=== PATIENT | female | born 1995 | race Caucasian/White ===

== ENCOUNTER 2017-02-07 19:05 | Emergency (ER) | payer OTHER ==
[2017-02-07 20:04] VITALS: BP 120/68
--- NOTE | 2017-02-07 21:19 | UC ---
Throat Pain/Nasal Tod HPI - HPI Summary HPI Summary: THREE DAYS OF SORE THROAT. CONCERN FOR STREP. NO FEVER. NO RASHES. NO ABDOMINAL PAIN. HAS FELT VERY TIRED. - History of Current Complaint Chief Complaint: UCGeneralIllness Stated Complaint: THROAT Time Seen by Provider: 02/07/17 20:55 Hx Obtained From: Patient Onset/Duration: Gradual Onset, Lasting Days, Still Present Severity: Moderate Cough: None Associated Signs & Symptoms: Positive: Dysphagia, Hoarseness - Epiglottits Risk Factors Epiglottis Risk Factors: Negative - Allergies/Home Medications Allergies/Adverse Reactions: Allergies Allergy/AdvReac Type Severity Reaction Status Date / Time No Known Allergies Allergy Verified 02/07/17 20:04 Home Medications: Home Medications NK [No Home Medications Reported] 02/07/17 [History Confirmed 02/07/17] PMH/Surg Hx/FS Hx/Imm Hx Previously Healthy: Yes - Surgical History Surgical History: None - Family History Known Family History: Negative: Blood Disorder - Social History Occupation: Employed Full-time Lives: With Family Alcohol Use: Occasionally Substance Use Type: None Smoking Status (MU): Never Smoked Tobacco Review of Systems Constitutional: Negative Skin: Negative Eyes: Negative ENT: Sore Throat Respiratory: Negative Cardiovascular: Negative Gastrointestinal: Negative Genitourinary: Negative Motor: Negative Neurovascular: Negative Musculoskeletal: Negative Neurological: Negative Psychological: Negative Is Patient Immunocompromised?: No All Other Systems Reviewed And Are Negative: Yes Physical Exam Triage Information Reviewed: Yes Appearance: Well-Appearing, No Pain Distress, Well-Nourished Vital Signs: Initial Vital Signs Temp 98.1 F 02/07/17 20:01 Pulse 80 02/07/17 20:01 Resp 16 02/07/17 20:01 BP 120/68 02/07/17 20:01 Pulse Ox 98 02/07/17 20:01 Vital Signs Reviewed: Yes Eye Exam: Normal ENT: Positive: Hearing grossly normal, Pharyngeal erythema, TMs normal, Other - HX OF TONSILECTOMY Dental Exam: Normal Neck exam: Normal Neck: Positive: Supple, Nontender, No Lymphadenopathy Respiratory Exam: Normal Respiratory: Positive: Chest non-tender, Lungs clear, Normal breath sounds, No respiratory distress, No accessory muscle use Cardiovascular Exam: Normal Cardiovascular: Positive: RRR, No Murmur, Pulses Normal Abdominal Exam: Normal Abdomen Description: Positive: Nontender, No Organomegaly Musculoskeletal Exam: Normal Neurological Exam: Normal Psychological Exam: Normal Skin Exam: Normal Throat Pain/Nasal Course/Dx - Differential Dx/Diagnosis Differential Diagnosis/HQI/PQRI: Laryngitis, Mononucleosis, Pharyngitis Provider Diagnoses: PHARYNGITIS Discharge - Discharge Plan Condition: Stable Disposition: HOME Patient Education Materials: Pharyngitis (ED) Referrals: Ac Zavala MD [Primary Care Provider] -
[2017-02-08 13:53] LABS: EBV Response YES
[2017-02-08 14:11] LABS: Manual Entry Verification CAS0014; Mono Internal Control QC Line Present
[2017-02-10 13:08] LABS: EBV Capsid Ag IgG Ab Positive (Negative); EBV Capsid Ag IgM Ab Negative (Negative)
== END 2017-02-07 21:20 | disposition home or self-care (01) ==
LOC: UCCORT 19:05
DX: J02.9 Acute pharyngitis, unspecified (principal)
CPT/HCPCS: 36415; 86308; 86664; 86665; 87651; 99211; G0463

== ENCOUNTER 2018-08-31 11:52 | Emergency (ER) | payer OTHER ==
--- NOTE | 2018-08-31 13:13 | UC ---
Ear Complaint HPI - HPI Summary HPI Summary: 23 female presents to the urgent care accompany by mother c/o left auricle w/ an embedded piercing red, swollen and yellowish drainage she noticed wehn she woke up. She has other piercing, but never had one infected. This was placed about 6 months ago. Pain at touch is 6/10. She took Ibuprofen PO 800mg this morning. She was seen by her PCP yesterday and Rx Z-rajiv for possible strep, but not rapid strep done. Pt denies fever, SOB, MOREAU, dizziness, Hx of MRSA, SOB, chest pain, abdominal pain, N/V/D. - History of Current Complaint Stated Complaint: L EAR PERCING INFECTION Time Seen by Provider: 08/31/18 13:12 Hx Obtained From: Patient, Family/[employer] Hard[employer] - mother ?: No Onset/Duration: Gradual Onset, Lasting Days - 1 day, Still Present, Worse Since - this morning Severity Initially: Mild Severity Currently: Moderate Pain Intensity: 6 - touch Pain Scale Used: 0-10 Numeric Aggravating Factors: Other - touch, drainage Alleviating Factors: Nothing Associated Signs/Symptoms: Positive: Discharge - Allergies/Home Medications Allergies/Adverse Reactions: Allergies Allergy/AdvReac Type Severity Reaction Status Date / Time No Known Allergies Allergy Verified 02/07/17 20:04 PMH/Surg Hx/FS Hx/Imm Hx Previously Healthy: Yes - Pt denies PMHX - Surgical History Surgical History: None - Family History Known Family History: Positive: Cardiac Disease, Hypertension Negative: Blood Disorder - Social History Occupation: Employed Full-time Alcohol Use: Occasionally Substance Use Type: None Smoking Status (MU): Never Smoked Tobacco - Immunization History Vaccination Up to Date: Yes Review of Systems All Other Systems Reviewed And Are Negative: Yes Constitutional: Positive: Negative Skin: Positive: Other - left ear w/ embedded pircing w/ redness, swelling and pain Eyes: Positive: Negative ENT: Positive: Sore Throat Respiratory: Positive: Negative Cardiovascular: Positive: Negative Gastrointestinal: Positive: Negative Genitourinary: Positive: Negative Motor: Positive: Negative Neurovascular: Positive: Negative Musculoskeletal: Positive: Negative Neurological: Positive: Negative Psychological: Positive: Negative Is Patient Immunocompromised?: No Physical Exam - Summary Physical Exam Summary: Vital Signs Reviewed: Yes General: well appearing, well nourished female in no acute apparent pain distress, sitting comfortably on examining table Eye Exam: Normal Eyes: Positive: Conjunctiva Clear - PERRLA< EOMI, fundi grossly normal ENT: Positive: Normal ENT inspection, Hearing grossly normal, Pharynx normal, TMs normal Neck: Positive: Supple, Nontender, No Lymphadenopathy Respiratory: Positive: Chest non-tender, Lungs clear, Normal breath sounds, No respiratory distress Cardiovascular: Positive: RRR, No Murmur, Pulses Normal, Brisk Capillary Refill Abdomen Description: Positive: Nontender, No Organomegaly, Soft. Negative: CVA Tenderness (R), CVA Tenderness (L) Bowel Sounds: Positive: Present Musculoskeletal: Positive: Strength Intact, ROM Intact, No Edema Neurological: Positive: Alert, Muscle Tone Normal Psychological Exam: Normal Skin: Positive: Positive left auricle around helix w/ an embedded silver piercing w/ surrounding erythema, tender to palpation and mild yellowish drainage. Triage Information Reviewed: Yes Ear Complaint Course/Dx - Course Course Of Treatment: 23 female presents to the urgent care accompany by mother c/o left auricle w/ an embedded piercing red, swollen and yellowish drainage she noticed wehn she woke up. She has other piercing, but never had one infected. This was placed about 6 months ago. Pain at touch is 6/10. She took Ibuprofen PO 800mg this morning. She was seen by her PCP yesterday and Rx Z-rajiv for possible strep, but not rapid strep done. Pt denies fever, SOB, MOREAU, dizziness, Hx of MRSA, SOB, chest pain, abdominal pain, N/V/D. Hx obtained. pt w/ left auricle around helix w/ an embedded silver piercing w/ surrounding erythema, tender to palpation and mild yellowish drainage, the rest of PE is WNL. Pt's wound irrigated w/ saline water to soften mild crusting, then cleaned w/ iodine swabs, LET applied around left auricle to anesthetize area. Then piercing removed successfully w/ the help of 2 osvaldo forceps to unscrew it. Pt tolerated well procedure. Then Bacitracin oint applied and sterile dressing applied by me. Pt advised to Stop Z -rajiv and Rx Keflex PO which will cover for both cellulitis around left auricle and possible strep. Pt also Rx Bacitracin oint and Mother and Pt advised if rash increases in size or fever develops despite taking antibiotics to go to the ER for further management. Mother and Pt understood and agreed w/ plan of care. - Differential Dx/Diagnosis Differential Diagnosis/HQI/PQRI: Foreign Body, Otitis Externa, Otitis Media, Perforated TM, Other - cellulitis Provider Diagnosis: Foreign body in auricle, Cellulitis of auricle of left ear Discharge - Sign-Out/Discharge Documenting (check all that apply): Patient Departure - D/C home All imaging exams completed and their final reports reviewed: No Studies - Discharge Plan Condition: Stable Disposition: HOME Prescriptions: Bacitracin OINTMENT* 1 applic TOPICAL BID #1 tube Cephalexin CAP* [Keflex CAP*] 500 mg PO TID #21 cap Patient Education Materials: Cellulitis (ED) Referrals: Ac Zavala MD [Primary Care Provider] - 3 Days Additional Instructions: 1-Please take full course of Antibiotic to avoid resistance. Piercing were removed please do use put them back.1-Please take full course of Antibiotic. 2- If redness and swelling doubles in size after 48 hrs of taking antibiotic and fever develops please go to the ER immediately or return here to the urgent care 3- keep it elevated and keep wound clean and dry. Apply BAcitrain oint as directed 4-Please F/u with your PCP in 3 days if not improvement for further evaluation and treatment. - Billing Disposition and Condition Condition: STABLE Disposition: Home
[2018-08-31 13:19] VITALS: BP 115/72
[2018-08-31] MEDS ORDERED: Lidocaine/Epineph/Tetraca GEL* 3 ML GEL IN SYR TOPICAL ONE (13:30)
== END 2018-08-31 14:28 | disposition home or self-care (01) ==
LOC: UCCORT 11:52
DX: T16.2XXA Foreign body in left ear, initial encounter (principal); X58.XXXA Exposure to other specified factors, initial encounter; Y93.89 Activity, other specified; Y92.9 Unspecified place or not applicable; H60.12 Cellulitis of left external ear
CPT/HCPCS: 10120; 99212; A9270-GY; G0463